=== PATIENT | male | born 1985 | race Caucasian/White ===

== ENCOUNTER 2019-01-22 13:08 | Emergency (ER) | payer OTHER ==
[~2019-01-22] VITALS: Ht 165.1 cm; Wt 97.5 kg
[2019-01-22] MEDS ORDERED: SUBOXONE 12 MG1 EACH (13:44)
== END 2019-01-22 18:03 | disposition home or self-care (01) ==
LOC: ER 13:08
DX: G43.109 Migraine with aura, not intractable, without status migrainosus (principal)

== ENCOUNTER → 2019-04-14 | Emergency (ER) | payer OTHER ==
[~2019-04-14] VITALS: Ht 177.8 cm; Wt 107.0 kg
[~2019-04-14] MED LIST: FLONASE ALLERG9.9 ML NASAL; SUBOXONE 12 MG1 EACH
== END | disposition home or self-care (01) ==
LOC: ER 19:28
DX: B34.9 Viral infection, unspecified (principal)

== ENCOUNTER 2019-08-10 08:15 | Emergency (ER) | payer OTHER ==
[~2019-08-10] VITALS: Ht 177.8 cm; Wt 105.7 kg
[2019-08-10] MEDS ORDERED: ALTACE10 MG PO ×2 (08:34→08:35)
[2019-08-10] MEDS ORDERED: CATAPRES0.3 M1 PO (08:35)
[2019-08-10] MEDS ORDERED: SUBOXONE 8 MG-1 EACH SL (08:36)
== END 2019-08-10 11:18 | disposition home or self-care (01) ==
LOC: ER 08:15
DX: N48.89 Other specified disorders of penis (principal)

== ENCOUNTER 2019-08-21 12:51 | Emergency (ER) | payer OTHER ==
[~2019-08-21] VITALS: Ht 177.8 cm; Wt 104.3 kg
[~2019-08-21 12:51] MED LIST changes: +ALTACE10 MG PO; +CATAPRES0.3 M1 PO; +SUBOXONE 8 MG-1 EACH SL
[2019-08-21] MEDS ORDERED: DICLOFENAC SODI75 MG PO (17:36)
[2019-08-21] MEDS ORDERED: BACTRIM DS TAB1 EACH PO (17:36)
== END 2019-08-21 17:41 | disposition home or self-care (01) ==
LOC: ER 12:51
DX: N48.29 Other inflammatory disorders of penis (principal); N48.89 Other specified disorders of penis

== ENCOUNTER → 2019-12-13 | Emergency (ER) | payer OTHER ==
[~2019-12-13] VITALS: Ht 177.8 cm; Wt 106.6 kg
[~2019-12-13] MED LIST changes: +BACTRIM DS TAB1 EACH PO; +DICLOFENAC SODI75 MG PO; +LABETALOL HCL100 MG PO; +VISTARIL50 MG PO
== END | disposition home or self-care (01) ==
LOC: ER 04:22
DX: R00.2 Palpitations (principal); F41.0 Panic disorder [episodic paroxysmal anxiety]

== ENCOUNTER 2020-02-06 12:43 | Emergency (ER) | payer OTHER ==
[~2020-02-06] VITALS: Ht 177.8 cm; Wt 106.6 kg
[2020-02-06] MEDS ORDERED: KAPVAY0.1 MG (12:56)
[2020-02-06] MEDS ORDERED: SUBOXONE 8 MG-1 EACH (12:56)
== END 2020-02-06 13:39 | disposition home or self-care (01) ==
LOC: ER 12:43
DX: S61.222A Laceration with foreign body of right middle finger without damage to nail, initial encounter (principal); W26.8XXA Contact with other sharp object(s), not elsewhere classified, initial encounter; Y93.89 Activity, other specified; Y92.89 Other specified places as the place of occurrence of the external cause; Y99.8 Other external cause status

== ENCOUNTER 2020-08-22 11:24 | Emergency (ER) | payer OTHER ==
[~2020-08-22] VITALS: Ht 177.8 cm; Wt 108.9 kg
[~2020-08-22 11:24] MED LIST changes: +KAPVAY0.1 MG; +SUBOXONE 8 MG-1 EACH
== END 2020-08-22 15:38 | disposition home or self-care (01) ==
LOC: ER 11:24
DX: K59.09 Other constipation (principal)

== ENCOUNTER 2021-10-14 20:09 | Emergency (ER) | payer OTHER ==
[~2021-10-14] VITALS: Ht 177.8 cm; Wt 104.3 kg
[2021-10-14] MEDS ORDERED: MEDROLPACK PO (21:59)
[2021-10-14] MEDS ORDERED: AMOX-CLAV 875-1 EAC1 PO (21:59)
[2021-10-14] MEDS ORDERED: ZITHROMAX500 MG PO (22:19)
[2021-10-14] MEDS ORDERED: DOLOGEN 325-11 EACH PO (22:19)
[2021-10-14] MEDS ORDERED: FLONASE ALLERG9.9 ML NASAL (22:36)
== END 2021-10-14 22:36 | disposition home or self-care (01) ==
LOC: ER 20:09
DX: J04.0 Acute laryngitis (principal); J02.9 Acute pharyngitis, unspecified; I10 Essential (primary) hypertension

== ENCOUNTER 2021-10-21 22:24 | Emergency (ER) | payer OTHER ==
[~2021-10-21] VITALS: Ht 177.8 cm; Wt 108.0 kg
[~2021-10-21 22:24] MED LIST changes: +AMOX-CLAV 875-1 EAC1 PO; +DOLOGEN 325-11 EACH PO; +MEDROLPACK PO; +ZITHROMAX500 MG PO
== END 2021-10-22 00:33 | disposition home or self-care (01) ==
LOC: ER 22:24
DX: K29.70 Gastritis, unspecified, without bleeding (principal); K21.9 Gastro-esophageal reflux disease without esophagitis

== ENCOUNTER 2022-08-09 17:36 | Emergency (ER) | payer OTHER ==
[~2022-08-09] VITALS: Ht 177.8 cm; Wt 103.0 kg
[2022-08-09] MEDS ORDERED: ACID REDUCER20 M1 PO (18:13)
== END 2022-08-09 20:20 | disposition home or self-care (01) ==
LOC: ER 17:36
DX: R00.2 Palpitations (principal); F41.9 Anxiety disorder, unspecified; I10 Essential (primary) hypertension

== ENCOUNTER 2024-08-09 22:51 | Emergency (ER) | payer OTHER ==
[~2024-08-09] VITALS: Ht 170.2 cm; Wt 108.9 kg
[~2024-08-09 22:51] MED LIST changes: +ACID REDUCER20 M1 PO
[2024-08-10] MEDS ORDERED: CLINDAMYCIN PHOSPHATE 150 MG/ML (600mg) IM STA (07:18)
== END 2024-08-10 07:41 | disposition home or self-care (01) ==
LOC: ER 22:53
DX: L03.115 Cellulitis of right lower limb (principal)

== ENCOUNTER 2025-04-01 09:35 | Outpatient (CLI) | payer OTHER | END 2025-04-01 09:40 | disposition home or self-care (01) | LOC: RAD 09:35 | DX: J18.9 Pneumonia, unspecified organism (principal) ==

== ENCOUNTER 2025-08-18 20:47 | Emergency (ER) | payer OTHER ==
[~2025-08-18] VITALS: Ht 177.8 cm; Wt 113.4 kg
[2025-08-18] MEDS ORDERED: KETOROLAC TROMETHAMINE 60 MG VIAL IM STA (23:31)
[2025-08-19] MEDS ORDERED: KETOROLAC TROMETHAMINE 60 MG VIAL IM ONE (00:31)
[2025-08-19 00:51] LABS: BASO % 0.5 % (0.1-1.2); EOS # 0.08 (0.04-0.54); EOS % 1.4 % (0.7-7.0); LYMPH # 2.28 (1.18-3.74); LYMPH % 39.9 % (19.3-53.1); MEAN PLATELET VOLUME 10.30 fl (9.4-12.4); MONO # 0.51 (0.24-0.82); MONO % 8.9 % (4.7-12.5); NEUT # 2.80 (1.56-6.13); NEUT % 49.1 % (34.0-71.1); RED CELL DISTRIBUTION WIDTH 12.1 % (11.6-14.4)
[2025-08-19] MEDS ORDERED: POLY119PG PO (02:56)
== END 2025-08-19 03:46 ==
LOC: ER 20:47
PROVIDERS: General Practice
DX: K42.9 Umbilical hernia without obstruction or gangrene (principal); I10 Essential (primary) hypertension